=== PATIENT | female | born 1975 | race Caucasian/White ===

== ENCOUNTER 2020-05-05 11:10 | Emergency (ER) | payer BC, OTHER ==
[~2020-05-05] VITALS: Ht 162.6 cm; Wt 67.9 kg
[~2020-05-05 11:10] MED LIST: PREN1TAB28 PO
[2020-05-05] MEDS ORDERED: LORazepam 1MG TABLET PO ONE (11:30)
[2020-05-05] MEDS ORDERED: LORazepam 1MG TABLET ONE (11:54)
[2020-05-05 11:57] LABS: BASOPHILS % (AUTO) 1 % (0-1); EOSINOPHILS % (AUTO) 2 % (1-7); LYMPHOCYTES % (AUTO) 46 % (22-44); MEAN CORPUSCULAR HGB CONC 33.8 g/dL (32.4-35.8); MEAN PLATELET VOLUME 7.9 fL (7.4-10.4); MONOCYTES % (AUTO) 7 % (2-9); NEUTROPHILS % (AUTO) 45 % (42-75); PLATELET COUNT 250 x10^3/uL (130-400); RED BLOOD COUNT 4.43 x10^6/uL (3.82-5.3)
[2020-05-05 11:59] LABS: MD NO
--- NOTE | 2020-05-05 11:59 | NUR ---
pt up to bathroom. stated that she feels like her heart is racing. sr on the monitor 80s. admin meds per .
[2020-05-05 12:07] LABS: ALBUMIN 4.1 g/dL (3.4-5.0); ANION GAP 6 mmol/L (5-15); CALCIUM 9.1 mg/dL (8.5-10.1); CHLORIDE 109 mmol/L (98-107); CREATININE 0.76 mg/dL (0.55-1.02)
[2020-05-05 12:49] VITALS: BP 124/53
--- NOTE | 2020-05-05 12:50 | NUR ---
pt walked out self with staedy gait. sister driving her home. discuessed if s&s worsen return to the er
== END 2020-05-05 12:51 | disposition home or self-care (01) ==
LOC: ED 12:07
DX: R00.2 Palpitations (principal); F41.1 Generalized anxiety disorder; R06.4 Hyperventilation; R07.89 Other chest pain
CPT/HCPCS: 36415; 71045; 80048; 82040; 84703; 85025; 93005; 99285